=== PATIENT | male | born 1935 | race Caucasian/White ===

== ENCOUNTER → 2017-10-05 | Outpatient (CLI) | payer MEDICARE, OTHER ==
[~2017-10-05] MED LIST: ASPI325T6 PO; ASPIRIN 81M81 MG/TA2 PO; ASPIRIN E.C. 8181 MG PO; CEPHALEXIN500 M1 PO; CORDARONE200 MG/TAB PO; DETROL LA4 PO; FISH OIL 1000MG1 CAP PO; FISH OIL1 IU PO; HYTRIN 5MG C5 MG/CAP PO; HYTRIN5 MG PO; IMDUR 60MG60 MG/TAB PO; IRON65 M1 PO; K-DUR20 MEQ PO; KLOR-CON M2020 MEQ PO; LANOXIN 0.120.125 MG PO; LASIX 40MG TABL40 MG PO; LIPITOR 40MG TA40 MG PO; NATURAL IRON65 MG PO; PLAVIX 75MG TAB75 MG PO; PLENDIL10 MG PO; PRILOSEC 20MG20 MG PO; PRINIVIL10 MG PO; PRINIVIL40 MG PO; PROAIR HFA0.09 MG/AC IH; PROSVENT PO; SAW PALMETTO S450 MG PO; SYNTHROID 0.0.025 MG PO; TIROSINT50 MC1 PO; TOPROL XL 50MG50 MG PO; TRICOR145 MG PO; ULTRAM 50MG TAB50 MG PO; UROXATRAL10 M1 PO; XALATAN EYE DROPS OU; XARELTO20 MG PO
== END ==
LOC: COL.PUL 07:42
DX: C34.31 Malignant neoplasm of lower lobe, right bronchus or lung (principal); I10 Essential (primary) hypertension; Z87.891 Personal history of nicotine dependence

== ENCOUNTER 2018-07-29 15:31 | Inpatient (IN) | payer MEDICARE, OTHER ==
[~2018-07-29] VITALS: Ht 185.4 cm; Wt 121.6 kg
[2018-07-29 16:08] LABS: BASO % 0.4 % (0.0-2.0); EOS # 0.1 (0.0-0.7); EOS % 0.7 % (0-4.0); GRAN # 6.4 (1.4-6.5); GRAN % 86.1 % (42.2-75.2); HEMATOCRIT 42.1 % (42.0-52.0); HEMOGLOBIN 13.4 g/dl (13.5-18.0); LYMPH # 0.3 (1.2-3.4); LYMPH % 4.4 % (20.0-51.0); MEAN CELL VOLUME 96 fl (80.0-100.0); MEAN CORPUSCULAR HEMOGLOBIN 30 pg (27.0-31.0); MEAN CORPUSCULAR HGB CONC 32 g/dl (33.0-37.0); MEAN PLATELET VOLUME 12.2 fl (7.4-10.4); MONO # 0.6 (0.1-0.6); MONO % 8.1 % (1.7-9.3); PLATELET COUNT 92 K/mm3 (130-400); RED BLOOD COUNT 4.41 M/mm3 (4.20-5.60); REDCELL DISTRIBUTION WIDTH-CV 16.2 % (11.5-14.5)
[2018-07-29] MEDS ORDERED: ELIQUIS 5MG PO (16:10)
[2018-07-29] MEDS ORDERED: TOPROL XL100 MG (16:13)
[2018-07-29 16:16] LABS: INR 1.6 (0.8-3.0); PROTHROMBIN TIME 17.7 SECONDS (9.7-12.8)
[2018-07-29 16:18] LABS: ALBUMIN 3.8 gm/dL (3.5-5.0); BILIRUBIN,TOTAL 1.1 mg/dL (0.0-1.0); CALCIUM 9.8 mg/dL (8.4-10.2); CREATININE, serum 1.98 (0.66-1.25); POTASSIUM 5.2 mmol/L (3.4-5.0); TOTAL PROTEIN 6.8 gm/dL (6.4-8.2)
[2018-07-29 16:30] LABS: TROPONIN-I 0.019 ng/mL (0.000-0.035)
[2018-07-29 16:41] LABS: ARTERIAL BLD GAS O2 SATURATION 95.9 % (92-100); ARTERIAL BLD GAS TCO2 CT 24.1; ARTERIAL BLOOD GAS BASE EXCESS -0.2 (-2-2); ARTERIAL BLOOD GAS PCO2 33.5 mmHg (35-45); ARTERIAL BLOOD GAS PO2 85.6 mmHg (80-100); ARTERIAL BLOOD GAS pH 7.46 (7.35-7.45)
[2018-07-29 18:33] VITALS: BP 105/86; PULSE 95; TEMP 97.4
--- NOTE | 2018-07-29 18:50 | NUR ---
Patient up to room, escorted via wheel chair by WENDY Salter from ER. Patient oriented to room, call light within reach. Patient sitting on EOB in tripod position with bedside table. Patient has increased WOB, on room air, sats in high 90s. Patient is A&O, independent. Radial pulses strong bilaterally, pedal pulses 1+. C/O SHOEMAKER. Lung sounds diminished at bases, upper lobes CTA. HR irregular rhythm. INT IV LAC has no redness or drainage. BLE edema 1+. Bowel sounds present. Patient denies dizziness, chest pain, N/V. No other needs at this time. Admission and med rec complete. Report given to WENDY Dubois.
[2018-07-29 20:00] VITALS: BP 107/71; PULSE 99; TEMP 97.9
--- NOTE | 2018-07-29 20:16 | NUR ---
PATIENT SITTING UP IN RECLINER IN BEDROOM WATCHING TV. DENIES C/O OF PAIN OR DISCOMFORT. SEE EMAR FOR MEDICATIONS ADMINISTERED. WAITING FOR RESULTS OF HEPARIN XA TO START HEPARIN DRIP ORDERED. DENIES NEEDS AT END OF SHIFT.
[2018-07-29 20:17] LABS: PARTIAL THROMBOPLASTIN TIME 34.5 SECONDS (26.0-37.0)
--- NOTE | 2018-07-29 20:24 | NUR ---
HEAPARIN XA RESULTED @ 2.40. CALL TO YASEMIN THOMAS NOTIFIED OF RESULTS. ORDER RECEIVED TO FOLLOW HEPARIN DRIP PROTOCOL. TO RE DRAW HEPARIN XA AT 2230.
[2018-07-29 23:38] VITALS: BP 113/64; PULSE 101; TEMP 97.4
[2018-07-30] VITALS (7 sets, daily range): BP systolic 95–119; BP diastolic 59–84; PULSE 83–103; TEMP 97.1–98.6
--- NOTE | 2018-07-30 02:27 | NUR ---
Telemetry called stating patient tachy 120s on tele. Patient up in restroom. Returned to bed at this time. Will monitor.
[2018-07-30 02:55] LABS: PARTIAL THROMBOPLASTIN TIME 33.2 SECONDS (26.0-37.0)
[2018-07-30 04:46] LABS: BASO % 0.6 % (0.0-2.0); EOS # 0.1 (0.0-0.7); EOS % 0.9 % (0-4.0); GRAN # 4.4 (1.4-6.5); GRAN % 83.8 % (42.2-75.2); HEMATOCRIT 38.2 % (42.0-52.0); HEMOGLOBIN 12.3 g/dl (13.5-18.0); LYMPH # 0.3 (1.2-3.4); LYMPH % 4.7 % (20.0-51.0); MEAN CELL VOLUME 94 fl (80.0-100.0); MEAN CORPUSCULAR HEMOGLOBIN 30 pg (27.0-31.0); MEAN CORPUSCULAR HGB CONC 32 g/dl (33.0-37.0); MEAN PLATELET VOLUME 11.3 fl (7.4-10.4); MONO # 0.5 (0.1-0.6); MONO % 9.6 % (1.7-9.3); PLATELET COUNT 78 K/mm3 (130-400); RED BLOOD COUNT 4.06 M/mm3 (4.20-5.60); REDCELL DISTRIBUTION WIDTH-CV 16.1 % (11.5-14.5)
[2018-07-30 04:56] LABS: CALCIUM 9.6 mg/dL (8.4-10.2); CREATININE, serum 1.99 (0.66-1.25); POTASSIUM 4.9 mmol/L (3.4-5.0)
--- NOTE | 2018-07-30 06:14 | NUR ---
PATIENT SITTING UP IN RECLINER IN BEDROOM WATCH TV AND LOOKING AT BREAKFAST MENU. DENIES NEEDS OR CPMPLAINTS AT THIS TIME. NO OBSERVED OR REPORTED SHORTNESS OF BREATHE. PATIENT HAD UNEVENTFUL NIGHT UP TO BATHROOM FREQUENTLY D/T IV LASIX ADMINISTERED. HEPARIN DRIP CONTINUES TO BE ON HOLD AT THIS TIME D/T HEPARIN XA BEING > 1.0. SEE EMAR FOR BOLUS GIVEN ORDERED.
[2018-07-30 06:24] LABS: MUCOUS Present /lpf; PH 5 (5-8); SQUAMOUS EPITHELIAL 0-2 /hpf; URINE APPEARANCE Clear; URINE BACTERIA None Seen /hpf; URINE BILIRUBIN Negative (NEGATIVE); URINE BLOOD Negative (NEGATIVE); URINE COLOR Yellow; URINE GLUCOSE Negative (NEGATIVE); URINE KETONE Negative (NEGATIVE); URINE LEUKOCYTE ESTERASE Negative (NEGATIVE); URINE NITRATE Negative (NEGATIVE); URINE PROTEIN(semi-quant) Negative (NEGATIVE); URINE RBC 0-2 /hpf; URINE UROBILINOGEN Negative (NEGATIVE); URINE WBC 0-2 /hpf
[2018-07-30 06:34] LABS: COLLECTION METHOD CLEAN CATCH
--- NOTE | 2018-07-30 06:50 | NUR ---
Report given to WENDY Randolph.
--- NOTE | 2018-07-30 09:00 | NUR ---
received call from lab regarding critical hep Xa of 1.26.will continue to hold hep gtts until hep Xa is WNLs. Notified.call light in reach
--- NOTE | 2018-07-30 09:54 | NUR ---
Assessment complete.patient awake,a/ox3.denies pain or discomfort at this time.fine crackles auscultated to right lower lung.patient denies SOB on rest.report SOB with exertion.patient's heparin remains on hold d/t hepxa >1.all meds given.patient denies any needs at this time.will continue to monitor.call light in reach
--- NOTE | 2018-07-30 11:05 | NUR ---
Initial visit; Patient thanked Public Relations Professional for looking in on him and offering God's blessings.
--- NOTE | 2018-07-30 13:22 | NUR ---
SW met with patient to discuss discharge planning. Patient lives independently at home. Patient's PCP is Dr Kennedy and he obtains prescriptions from [facility] Patient does not use any DME or home health services. Patient does not have a DPOA-HC and he is not interested in obtaining one at this time. SW does not anticipate any discharge needs.
--- NOTE | 2018-07-30 15:56 | NUR ---
HEPARIN RESTARTED PER PROTOCOLHEPXA 0.85.HEP HELD FOR ONE HOUR,RESTARTED AND DECREASE TO 20MLS/HR.
--- NOTE | 2018-07-30 18:28 | NUR ---
HEP GTT INFUSING AT THIS TIME.PATIENT SIGNED CONSENT FOR THORACENTESIS SCHEDULED TOMORROW.PT DENIES ANY NEEDS AT THIS TIME.WILL CONTINUE TO MONITOR.CALL LIGHT N REACH
--- NOTE | 2018-07-30 18:47 | NUR ---
REPORT GIVEN TO FUENTES RN.
--- NOTE | 2018-07-30 21:31 | NUR ---
ASSESSMENT COMPLETED AT 2024. PATIENT LAYING IN BED ON RIGHT SIDE. DENIES C/O OF PAIN OR DISCOMFORT. DENIES SHORTNESS OF BREATHE. INCREASED WORK OF BREATHING NOTICED DURING ACTIVITY. NO CHEST PAIN. HEAPRIN DRIP INFUSING AT 20ML/HR PER ORDER TO GET HEPARIN XA RECHECK AT 2099. DENIES FURTHER NEEDS AT END OF VISIT.
[2018-07-31] VITALS (9 sets, daily range): BP systolic 90–117; BP diastolic 45–67; PULSE 59–110; TEMP 97–98.5
--- NOTE | 2018-07-31 00:21 | NUR ---
Patient resting in bed. Hepxa 0.88, restarted at 17ml/hr per protocol. Will monitor.
--- NOTE | 2018-07-31 02:39 | NUR ---
PT REFUSED TX WANTS TO SLEEP RESTART TX IN AM
--- NOTE | 2018-07-31 04:36 | NUR ---
HEPARIN DRIP DISCONTINUED AT 0414 ORDERED. INFUSED STOPPED AND REMAINING SOLUTION DISCARDED.
--- NOTE | 2018-07-31 06:57 | NUR ---
Report given to WENDY Randolph
[2018-07-31 07:01] LABS: HEMATOCRIT 38.3 % (42.0-52.0); HEMOGLOBIN 12.2 g/dl (13.5-18.0); MEAN CELL VOLUME 94 fl (80.0-100.0); MEAN CORPUSCULAR HEMOGLOBIN 30 pg (27.0-31.0); MEAN CORPUSCULAR HGB CONC 32 g/dl (33.0-37.0); MEAN PLATELET VOLUME 11.4 fl (7.4-10.4); PLATELET COUNT 90 K/mm3 (130-400); RED BLOOD COUNT 4.06 M/mm3 (4.20-5.60); REDCELL DISTRIBUTION WIDTH-CV 16.3 % (11.5-14.5)
[2018-07-31 07:14] LABS: CALCIUM 9.5 mg/dL (8.4-10.2); CREATININE, serum 2.06 (0.66-1.25); POTASSIUM 4.4 mmol/L (3.4-5.0)
[2018-07-31 07:24] LABS: INR 1.2 (0.8-3.0)
[2018-07-31 07:27] LABS: PARTIAL THROMBOPLASTIN TIME 31.3 SECONDS (26.0-37.0)
[2018-07-31 07:42] LABS: BASOPHIL 1 % (0-2); EOSINOPHIL 1 % (0-4); LYMPHOCYTE 6 % (20.0-51.0); NEUTROPHILS 84 % (42.0-75.2); PLATELET ESTIMATE DECREASED (NORMAL)
--- NOTE | 2018-07-31 08:28 | NUR ---
received report from WENDY Meredith.
[2018-07-31 10:32] LABS: PLEURAL FLUID RBC 5000 /mm3 (0-0); PLEURAL FLUID WBC 170 /mm3
[2018-07-31 10:34] LABS: PLEURAL FLUID APPEARANCE CLOUDY; PLEURAL FLUID COLOR YELLOW
--- NOTE | 2018-07-31 11:13 | NUR ---
Assessment complete.patient awake,a/ox3.denies pain or discomfort at this time.Thoracemtesis done at bedside by this morning.1300mls of pelural fluid drained.fluid sent to lab. rounded on patient and DC hep gtt and restarted patient on eliquis at half home dose.patient in Afib at this time with HR in 110s.cardiology following.no other needs voiced at this time.call light in reach
[2018-07-31 11:26] LABS: GLUCOSE,PLEURAL FLUID 99 mg/dL; TOTAL PROTEIN,PLEURAL FLUID < 2.0 gm/dL
--- NOTE | 2018-07-31 11:44 | NUR ---
call received from Telemetry regarding patient's HR in 120s.Leticia POWER notified.states will reasess parameters.
--- NOTE | 2018-07-31 11:45 | NUR ---
patient resting in recliner at this time.VSS.denies any concerns at this time.will continue to monitor.call light in reach
--- NOTE | 2018-07-31 15:40 | NUR ---
RECEIVED CALL FROM TELE REGARDING PATIENT'S HR BEING IN 120S.DUANE MCLAUGHLIN NOTIFIED AND ORDERS TO INCREASE PARAMETERS TO 130 FOR SBP.CALL PLACED TO WENDY CASTELLON AT TELEMETRY AND UPDATE GIVEN.PT RESTING IN RECLINER.NO NEEDS VOICED.WILL CONTINUE TO MONITOR.CALL LIGHT IN REACH
--- NOTE | 2018-07-31 18:34 | NUR ---
PT SITTING IN RECLINER AT THIS TIME.DENIES ANY SOB.REPORTS FEELING BETTER.HR IS 91 ON TELEMETRY AT THIS TIME.NO OTHER NEEDS VOICED.WILL CONTINUE TO MONITOR.CALL LIGHT IN REACH
--- NOTE | 2018-07-31 19:13 | NUR ---
REPORT GIVEN TO WENDY WORTHY.
[2018-08-01 03:49] VITALS: BP 98/62; PULSE 51; TEMP 97.1
[2018-08-01 07:17] LABS: HEMATOCRIT 37.5 % (42.0-52.0); HEMOGLOBIN 11.8 g/dl (13.5-18.0); MEAN CELL VOLUME 96 fl (80.0-100.0); MEAN CORPUSCULAR HEMOGLOBIN 30 pg (27.0-31.0); MEAN CORPUSCULAR HGB CONC 32 g/dl (33.0-37.0); MEAN PLATELET VOLUME 11.9 fl (7.4-10.4); PLATELET COUNT 89 K/mm3 (130-400); RED BLOOD COUNT 3.92 M/mm3 (4.20-5.60); REDCELL DISTRIBUTION WIDTH-CV 16.6 % (11.5-14.5)
[2018-08-01 07:35] LABS: CALCIUM 9.3 mg/dL (8.4-10.2); CREATININE, serum 1.96 (0.66-1.25)
[2018-08-01 07:47] VITALS: BP 102/71; PULSE 90; TEMP 97.9
[2018-08-01 08:15] LABS: BAND 7 % (0-10); EOSINOPHIL 1 % (0-4); LYMPHOCYTE 3 % (20.0-51.0); NEUTROPHILS 79 % (42.0-75.2)
[2018-08-01 08:19] LABS: ANISOCYTOSIS 1+
--- NOTE | 2018-08-01 09:15 | NUR ---
Patient sitting in recliner. Assessment complete. A&O. Bases bilaterally diminished, upper lobes bilaterally CTA. Heart regular rate, irregular rhythm, normal S1S2. BLE edmea 2+. Patient states feeling "much better" after thoracentesis yesterday. Denies dizziness when walking, some c/o SOA on exertion. Denies chest pain, n/v. No other needs at this time. Call light within reach.
[2018-08-01 11:26] VITALS: BP 97/61; PULSE 95; TEMP 98.3
[2018-08-01 16:08] VITALS: BP 103/65; PULSE 95; TEMP 98.6
--- NOTE | 2018-08-01 19:52 | NUR ---
Patient has had uneventful day. Possible discharge tomorrow. Patient ambulating well with PT, no dizziness, some SOA. Patient on room air throughout the day. VSS. Report given to WENDY Landry.
[2018-08-01 20:00] VITALS: BP 99/83; PULSE 63; TEMP 98.1
--- NOTE | 2018-08-01 21:31 | NUR ---
PT AMBULATING IN ROOM, DENIES PAIN OR DISCOMFORT. PT REFUSES TO CHANGE IV AT THIS TIME, BUT WORKING FINE AND NO S/S OF INFLITRATION. NO NEEDS, CALL LIGHT WITHIN REACH.
[2018-08-01 23:58] VITALS: BP 107/61; PULSE 105; TEMP 98.6
--- NOTE | 2018-08-02 01:18 | NUR ---
PT SLEEPING/RESTING IN BED WITH HOB ELEVATED TO 15 DEGREE ANGLE. RESP EVEN AND UNLABORED WITH NO S/S OF PAIN OR DISCOMFORT NOTED. CALL LIGHT WITHIN REACH.
[2018-08-02 03:11] VITALS: BP 110/78; PULSE 88; TEMP 98.6
--- NOTE | 2018-08-02 06:19 | NUR ---
PT AWAKE AND AMBULATING IN ROOM. PT ADVISES THAT HE ALWAYS WAKES UP EARLY AROUND 0300 AND CANNOT GO BACK TO SLEEP. PT DID SLEEP WELL AND HAD AN UNEVENTFUL NIGHT, NO NEEDS AT THIS TIME, AND CALL LIGHT WITHIN REACH.
[2018-08-02 06:23] LABS: HEMOGLOBIN 11.2 g/dl (13.5-18.0); MEAN CELL VOLUME 96 fl (80.0-100.0); MEAN CORPUSCULAR HEMOGLOBIN 30 pg (27.0-31.0); MEAN CORPUSCULAR HGB CONC 32 g/dl (33.0-37.0); MEAN PLATELET VOLUME 11.7 fl (7.4-10.4); PLATELET COUNT 77 K/mm3 (130-400); RED BLOOD COUNT 3.69 M/mm3 (4.20-5.60); REDCELL DISTRIBUTION WIDTH-CV 16.5 % (11.5-14.5)
[2018-08-02 06:25] LABS: HEMATOCRIT 35.4 % (42.0-52.0)
[2018-08-02 06:36] LABS: CREATININE, serum 1.85 (0.66-1.25); POTASSIUM 3.9 mmol/L (3.4-5.0)
[2018-08-02 07:14] LABS: BAND 1 % (0-10); EOSINOPHIL 3 % (0-4); LYMPHOCYTE 5 % (20.0-51.0); NEUTROPHILS 84 % (42.0-75.2); PLATELET ESTIMATE DECREASED (NORMAL); POLYCHROMASIA 1+
[2018-08-02 07:15] LABS: ANISOCYTOSIS 1+
[2018-08-02] MEDS ORDERED: ASPIRIN E.C. 8181 MG PO (07:35)
[2018-08-02 07:59] VITALS: BP 112/65; PULSE 106; TEMP 97.6
--- NOTE | 2018-08-02 08:13 | NUR ---
Assessment complete. Patient A&Ox4, denies pain and discomfort. VS stable. IV CDI. Patient sitting up in recliner. Is waiting on doctors to round so that he can go home. No further needs expressed from patient. Call light within reach
[2018-08-02] MEDS ORDERED: ELIQUIS 2.5 PO (10:28)
[2018-08-02] MEDS ORDERED: PROAIR HFA0.09 MG/AC IH (10:43)
[2018-08-02] MEDS ORDERED: IPRATROPIUM BROM3 M1 IH (10:48)
[2018-08-02] MEDS ORDERED: HYTRIN 1MG C1 MG/CAP PO (10:49)
[2018-08-02 11:02] VITALS: BP 94/64; PULSE 97; TEMP 97.9
--- NOTE | 2018-08-02 11:30 | NUR ---
Discharge paperwork reviewed with patient. Patient verbalized an understanding of discharge orders. IV removed, tip intact, patient tolerated well, bandaid applied. Nursing staff transfered patient by wheelchair to vehicle. Personal belongings and discharge paperwork with patient. Friend with patient. No further needs expressed from patient.
--- NOTE | 2018-08-02 12:49 | NUR ---
SW attended clincal rounds. Patient will discharge home today, 08/02. SW presented IM to patient. He signed and did not want a copy.
== END 2018-08-02 11:30 | disposition home or self-care (01) | DRG 682 ==
LOC: COL.ER 15:31 → MEDICAL 17:02
PROVIDERS: Family Medicine; Internal Medicine Pulmonary Disease; Nurse Practitioner Family; Physician Assistant; ADMIT Hospitalist
PROC: 0W993ZZ Drainage of Right Pleural Cavity, Percutaneous Approach (ICD-10-PCS; principal; 2018-07-31)
DX: N17.9 Acute kidney failure, unspecified (principal); I50.43 Acute on chronic combined systolic (congestive) and diastolic (congestive) heart failure; I13.0 Hypertensive heart and chronic kidney disease with heart failure and stage 1 through stage 4 chronic kidney disease, or unspecified chronic kidney disease; N18.9 Chronic kidney disease, unspecified; E87.5 Hyperkalemia; I48.2 Chronic atrial fibrillation; Z79.01 Long term (current) use of anticoagulants; Z86.711 Personal history of pulmonary embolism; D69.6 Thrombocytopenia, unspecified; E78.5 Hyperlipidemia, unspecified; E03.9 Hypothyroidism, unspecified; I25.10 Atherosclerotic heart disease of native coronary artery without angina pectoris; H40.9 Unspecified glaucoma; N40.0 Benign prostatic hyperplasia without lower urinary tract symptoms; Z85.46 Personal history of malignant neoplasm of prostate; Z85.850 Personal history of malignant neoplasm of thyroid; Z85.118 Personal history of other malignant neoplasm of bronchus and lung; Z95.0 Presence of cardiac pacemaker; Z87.891 Personal history of nicotine dependence; Z88.8 Allergy status to other drugs, medicaments and biological substances
CPT/HCPCS: 99232-AI; 99239; J1644; J1940